=== PATIENT | male | born 1990 | race Caucasian/White ===

== ENCOUNTER → 2018-07-23 | Day surgery (SDC) | payer MEDICAID ==
[~2018-07-23] MED LIST: BUPIVACAINE 0.5% 30 ML SDV ONE; LR 1,000 ML IV ONE; LR 500 ML IV PRN; MIDAZOLAM 2 MG/2 ML VIAL IVP ONE; NALOXONE HCL 0.4 MG/ML INJ IVP PRN; ONDANSETRON 4 MG/2 ML VIAL IVP PRN; PROMETHAZINE HCL 25 MG/ML INJ IVP PRN; PROPOFOL 200 MG/20 ML VIAL ONE; PROPOFOL/EMULSION 500 MG/50 ML BOTTLE IV ONE; ceFAZolin 2 GM/DEXTROSE 100 ML IV ONE; fentaNYL 100 MCG/2 ML INJ ONE; fentaNYL 250 MCG/5 ML INJ ONE; oxyCODONE IR 5 MG TAB PO PRN
--- NOTE | 2018-07-23 10:40 | PDHPUP ---
History & Physical Update H&P update statement: This history and physical update is based on an assessment of the patient which was completed after admission or registration (within 24 hours), but prior to the surgery/procedure. H&P update: H&P reviewed & patient examined (No changes in pre op H or P)
--- NOTE | 2018-07-23 10:53 | PDANEPAE ---
ANE History of Present Illness 28 year old for left hand thumb tendon reconstruction. Otherwise healthy. ANE Past Medical History - Cardiovascular History Hx Hypertension: No Hx Arrhythmias: No Hx Chest Pain: No Hx Coronary Artery / Peripheral Vascular Disease: No Hx CHF / Valvular Disease: No Hx Palpitations: No - Pulmonary History Hx COPD: No Hx Asthma/Reactive Airway Disease: No Hx Recent Upper Respiratory Infection: No Hx Oxygen in Use at Home: No Hx Sleep Apnea: No - Endocrine History Hx Diabetes: No - Chronic Pain History Chronic Pain: Yes ANE Review of Systems Review of systems is: negative Review of Systems: ANE Patient History - Allergies Allergies/Adverse Reactions: Sulfa (Sulfonamide Antibiotics) Allergy (Verified 07/22/15 19:42) - NPO status NPO Since - Liquids (Date): 07/23/18 NPO Since - Liquids (Time): 04:00 NPO Since - Solids (Date): 07/22/18 NPO Since - Solids (Time): 20:00 - Smoking Hx Smoking Status: Never smoked ANE Labs/Vital Signs - Vital Signs Blood Pressure: 134/97 Heart Rate: 61 Respiratory Rate: 16 O2 Sat (%): 94 Height: 172.72 cm Weight: 102.058 kg ANE Physical Exam - Airway Neck exam: FROM Mallampati Score: Class 3 Mouth exam: normal dental/mouth exam - Pulmonary Pulmonary: no respiratory distress - Cardiovascular Cardiovascular: regular rate and rhythym - ASA Status ASA Status: I ANE Anesthesia Plan Anesthesia Plan: GA w LMA
--- NOTE | 2018-07-23 13:09 | POSTOPPROG ---
Post Op Note Date of Operation: 07/23/18 Surgeon: Ryan Pretty Day Care Attendant: none Anesthesiologist: Dr. Gordillo Anesthesia: LMA Pre-op Diagnosis: Rupture and adhesions of EPL tendon transfer Post-op Diagnosis: same Indication: tendon rupture with adhesions Procedure: EPB to EPL tendon transfer Findings: tendon rupture with adhesions Inf/Abcess present in the surg proc area at time of surgery?: No Depth: Deep Incisional (Fascial) EBL: Minimal Total fluids administered: 600cc Complications: post op bleeding requiring wound exploration and cauterization and tying of venous channel. Specimen(s): none
--- NOTE | 2018-07-23 13:11 | POSTANESTH ---
Post Anesthetic Evaluation Cardiovascular Status: Normal, Stable Respiratory Status: Normal, Stable Level of Consciousness/Mental Status: Can Participate in Eval Pain Control: Adequate, Prn Tx Ordered Nausea/Vomiting Control: Adequate, Prn Tx Ordered Complications Possibly Related to Anesthesia: None Noted
[2018-07-23] MEDS: fentaNYL 100 MCG/2 ML INJ IVP PRN ×2 (13:15→13:32)
--- NOTE | 2018-07-23 13:36 | GOP ---
[f rep st] OPERATIVE REPORT DATE OF OPERATION: 07/23/2018 SURGEON: Ryan Pretty MD PREOPERATIVE DIAGNOSIS: Adhesions of previous extensor pollicis longus tendon transfer with limited excursion and loss of alignment of the extensor tendon at the MP joint level. POSTOPERATIVE DIAGNOSIS: Adhesion of ruptured extensor indicus proprius to extensor pollicis longus tendon transfer and loss of alignment of the extensor mechanism, dorsal aspect, MP joint. Proposed operation was rerouting of the EPL tendon out of the 4th dorsal compartment and centralizati on of the extensor tendon. PROCEDURE PERFORMED: Excision of extensor pollicis longus stump and transfer of extensor pollicis br adan to extensor pollicis longus at the MP joint level and centralization of the extensor mechanism. FINDINGS: INDICATIONS: This patient had extension of the thumb IP joint, which was coming from the pole of the extensor pollicis brevis tendon. The extensor pollicis longus tendon had ruptured and there was viri y significant scar tissue binding down the tendon stump and preventing flexion of the IP joint of the thumb and also causing ulnar deviation of the extensor mechanism at the MP joint level. It was felt that EPB to EPL tendon transfer and centralization of the extensor mechanism would cure the problem. DESCRIPTION OF PROCEDURE: Under general anesthesia, the patient's left arm was prepped and draped in the usual fashion and through the original surgical scars at the 3rd dorsal compartment, as well as at the dorsal aspect of the left thumb MP joint, the skin and subcutaneous tissue were reflected. Ve ins were cauterized and the extensor mechanism was inspected. The MP joint level anatomically appear ed to be normal with retained suture material which was removed, but back at the 3rd dorsal compartme nt area, the tendon transfer had ruptured. The extensor indices propria had migrated proximally and there was just the adherent stump of the previous tendon transfer. That was excised and the extensor pollicis brevis tendon, which had been operating the IP joint extension, was freed up better back to the first dorsal compartment and then the extensor mechanism was tightened, centralizing the extenso r mechanism and finally sutures were placed locking the extensor pollicis brevis to the extensor poll icis longus at the MP joint level. The tendon transfer was performed using 4-0 Prolene suture and th e wound was irrigated profusely with body temperature saline. Fourth dorsal compartment which had be en opened looking for the extensor indices propria was then repaired using horizontal mattress suture s of 4-0 PDS and then skin was closed with horizontal mattress sutures of 5-0 Prolene. A bulky soft pressure dressing was applied, followed by fiberglass thumb spica splint held in place with an Elian ba ndage. Tourniquet deflation resulted in immediate pinking of the digits, but there was some bleeding through the dressing. For that reason, the area was re-sterilized, the arm re-prepped and draped, t he dressing removed, and sutures removed from the distal incision. It was found that there was a lar ge dorsal vein which had been cauterized on approach, which had started again to bleed and that was a t this time, re-cauterized, tied off at both sides of the incision, tourniquet deflated, and the blee ding did not recur. The wound was irrigated profusely with body temperature saline. The tendon teague sfer was still intact. The skin was closed with horizontal mattress sutures of 5-0 Prolene and then a bulky soft pressure dressing was applied followed by fiberglass thumb spica splint. Tourniquet def lation resulted in immediate pinking of the digits and he was brought to the recovery area where [place] postoperative instructions were given prior to discharge. A prescription for [place] and Keflex w ere provided. Followup arrangements in the office for about 1 week postop for dressing and suture re moval and splint application and some very gentle remobilization before the tendon had a chance to bi nd down, but this needed to be carefully protected for a 6 week period 5 weeks from suture removal wi th a splint between exercise periods and 2 pound limit. /[id number]/MODL
[2018-07-23 14:01] VITALS: BP 137/69
== END | disposition home or self-care (01) ==
LOC: FSGY 07:24
PROVIDERS: ATTEND Specialist
DX: M67.88 Other specified disorders of synovium and tendon, other site (principal)
CPT/HCPCS: J0690; J2250; J2704; J3010